=== PATIENT | female | born 1975 | race American Indian/Alaskan Native ===

== ENCOUNTER 2017-08-12 14:03 | Outpatient (CLI) | payer BC ==
--- NOTE | 2017-08-12 16:16 | Mammography Report ---
RIGHT DIGITAL DIAGNOSTIC MAMMOGRAM with CAD and RIGHT BREAST ULTRASOUND: 08/12/17 14:17:00 CLINICAL: A 41-year-old post and breast feeding for seven months. Palpable lump in the lower inner breast. COMPARISON:None. FINDINGS: The breast is heterogeneously dense, which may obscure small masses and the density is sufficient to limit the sensitivity of mammography.2 partially circumscribed asymmetries near the palpable marker on the CC view demonstrate satisfactory effacement with spot compression. A partially circumscribed irregular asymmetry persists with spot compression on the MLO view. Ultrasound of the lower inner right breast was performed and demonstrated normal fibroglandular structures with no mass, cyst or shadowing. The arrt technologist describes a palpable ridge where the patient feels a lump. I did not have the opportunity to examine the patient myself. IMPRESSION: Probably benign mammographic asymmetries with a negative ultrasound in the area where the patient feels a lump. BI-RADS CATEGORY: 3 - - Probably Benign RECOMMENDATION: Consultation with a breast surgeon and a followup mammogram and right breast ultrasound in six months. ACR BI-RADS MAMMOGRAPHIC CODES: 0 = Needs additional imaging evaluation; 1 = Negative; 2 = Benign; 3 = Probably benign; 4 = Suspicious; 5 = Malignant; 6 = Known biopsy-proven malignancy COMMENT: 1. Dense breast tissue, i.e., adenosis, fibrocystic changes, etc., may obscure an underlying neoplasm. 2. Approximately 10% of cancers are not detected with mammography. 3. A negative mammography report should not delay biopsy if a clinically suspicious mass is present. COMMENT: Patient follow-up letters are generated by our [employer] application.
== END 2017-08-12 14:04 | disposition home or self-care (01) ==
LOC: MAMMO 14:03
PROVIDERS: ATTEND Obstetrics & Gynecology
DX: N63.14 Unspecified lump in the right breast, lower inner quadrant (principal)

== ENCOUNTER 2018-02-16 12:50 | Outpatient (CLI) | payer BC ==
--- NOTE | 2018-02-16 14:03 | Ultrasound Report ---
BILATERAL DIGITAL DIAGNOSTIC MAMMOGRAM with CAD and RIGHT BREAST ULTRASOUND: 02/16/18 CLINICAL: Six month followup for a palpable lump. She still feels a lump in the right breast and is still breast-feeding. COMPARISON:08/12/17 FINDINGS: The breasts are heterogeneously dense, which may obscure small masses and limit the sensitivity of mammography.Right inner partially circumscribed asymmetries are unchanged compared to the previous exam. No architectural distortion or suspicious calcifications.. Ultrasound of the right breast was performed and demonstrated no mass, cyst or shadowing in the inner breast from 3 o'clock to 5 o'clock. IMPRESSION: Stable probably benign mammographic asymmetries with a negative ultrasound. BI-RADS CATEGORY: 3 - - Probably Benign RECOMMENDATION: Clinical followup and consultation with a breast surgeon. I assume she has not seen a breast specialist since the last exam. Recommend a bilateral screening mammogram six months after termination of breast-feeding. ACR BI-RADS MAMMOGRAPHIC CODES: 0 = Needs additional imaging evaluation; 1 = Negative; 2 = Benign; 3 = Probably benign; 4 = Suspicious; 5 = Malignant; 6 = Known biopsy-proven malignancy COMMENT: 1. Dense breast tissue, i.e., adenosis, fibrocystic changes, etc., may obscure an underlying neoplasm. 2. Approximately 10% of cancers are not detected with mammography. 3. A negative mammography report should not delay biopsy if a clinically suspicious mass is present. COMMENT: Patient follow-up letters are generated by our [email or web address] application.
== END 2018-02-16 12:51 | disposition home or self-care (01) ==
LOC: MAMMO 12:50
PROVIDERS: ATTEND Obstetrics & Gynecology
DX: N63.14 Unspecified lump in the right breast, lower inner quadrant (principal)
CPT/HCPCS: 77066